=== PATIENT | male | born 1970 | race Caucasian/White ===

== ENCOUNTER 2020-04-10 13:52 | Emergency (ER) | payer BC, SELFPAY ==
[~2020-04-10] VITALS: Ht 175.3 cm; Wt 88.9 kg
[2020-04-10 13:53] VITALS: Ht 175.3 cm; Wt 88.9 kg
[2020-04-10 15:59] VITALS: BP 124/72
== END 2020-04-10 16:00 | disposition home or self-care (01) ==
LOC: ED 13:52
DX: U07.1 COVID-19 (principal); J12.89 Other viral pneumonia; Z76.0 Encounter for issue of repeat prescription
CPT/HCPCS: Q0092